=== PATIENT | male | born 1955 | race Caucasian/White ===

== ENCOUNTER → 2017-03-25 | Outpatient (CLI) | payer BC ==
--- NOTE | 2017-03-25 14:15 | DIAGNOSTIC IMAGING REPORT ---
L ANKLE BRACHIAL INDEX LIMITED CLINICAL HISTORY: PAIN IN LEFT LEG leg pain TECHNIQUE: Blood pressure evaluation COMPARISON STUDY: None FINDINGS: Ankle brachial index of the left leg shows posterior tibial index to measure 1.31. Dorsalis pedis is 1.10. On the right, index is 1.34 involving the posterior tibial and 1.34 involving dorsalis pedis IMPRESSION: Normal exam The above report was generated using voice recognition software. It may contain grammatical, syntax or spelling errors. Electronically signed by: Abdoulaye Hester M.D. 03/25/2017 2:13 PM Dictated Date/Time: 03/25/2017 2:12 PM
== END | disposition home or self-care (01) ==
LOC: C.ULTR 13:30
PROVIDERS: ATTEND Family Medicine
DX: M79.605 Pain in left leg (principal)